=== PATIENT | female | born 1995 | race African-American/Black ===

== ENCOUNTER 2018-03-06 11:56 | Emergency (ER) | payer MEDICAID ==
--- NOTE | 2018-03-06 12:34 | ED Physician Chart ---
ED Chief Complaint/HPI - Patient Information Date Seen:: 03/06/18 Time Seen:: 12:15 Chief Complaint:: pruritic rash History of Present Illness:: Patient has had a pruritic rash for the last approximately 10 days. The rash is primarily on her face and extremities. Patient has been applying calamine lotion and hydrocortisone. [place] Allergies:: Allergies Allergy/AdvReac Type Severity Reaction Status Date / Time No Known Allergies Allergy Verified 03/06/18 12:06 Vitals:: Vital Signs - 8 hr 03/06/18 03/06/18 12:00 12:12 Temp 98.7 F 98 F HR 72 72 RR 16 16 BP 103/64 103/64 O2 Sat % 98 98 Historian:: Patient Review:: Nurse's Note Reviewed ED Review of Systems - Review of Systems General/Constitutional: No fever, No chills, No weight loss, No weakness, No diaphoresis, No edema, No loss of appetite Skin: Rash, No bruising Head: No headache, No light-headedness Eyes: No loss of vision, No pain, No diplopia ENT: No earache, No nasal drainage, No sore throat, No tinnitus Neck: No neck pain, No swelling, No thyromegaly, No stiffness, No mass noted Cardio Vascular: No chest pain, No palpitations, No PND, No orthopnea, No edema Pulmonary: No SOB, No cough, No sputum, No wheezing GI: No nausea, No vomiting, No diarrhea, No pain, No melena, No hematochezia, No constipation, No hematemesis G/U: No dysuria, No frequency, No hematuria Musculoskeletal: No bone or joint pain, No back pain, No muscle pain Endocrine: No polyuria, No polydipsia Psychiatric: No prior psych history, No depression, No anxiety, No suicidal ideation Hematopoietic: No bruising, No lymphadenopathy Allergic/Immuno: No urticaria, No angioedema Neurological: No syncope, No focal symptoms, No weakness, No paresthesia, No headache, No seizure, No dizziness, No confusion, No vertigo ED Past Medical History - Past Medical History Past Medical History: No significant medical hx Family History: Diabetes Melitus, Cancer Social History: Non Smoker, No Alcohol Surgical History: None Psychiatricy History: None Medication: Reviewed Family Medical History - Family Member Mother History Unknown: Yes Ethnicity: Living Status: Unknown ED Physical Exam - Physical Examination General/Constitutional: Awake, Well-developed, well-nourished, Alert, No distress, GCS 15, Non-toxic appearing, Ambulatory Head: Atraumatic Eyes: Lids, conjuctiva normal, PERRL, EOMI Skin: Well hydrated, No lymphadenopathy Other Skin comments:: On the lower extremities are several linear areas up to about 2 cm long of vesicles about a half a millimeter diameter and surrounding by erythema; 8 cm area of erythema and minimal surface crusting right lateral thigh. ENMT: External ears, nose nl, Nasal exam nl, Lips, teeth, gums nl Neck: Nontender, Full ROM w/o pain, No JVD, No nuchal rigidity, No bruit, No mass, No stridor Respiratory: Nl effort/Exclusion, Clear to Auscultation, No Wheeze/Rhonchi/Rales Cardio Vascular: RRR, No murmur, gallop, rubs, NL S1 S2 GI: No tenderness/rebounding/guarding, No organomegaly, No hernia, Normal BS's, Nondistended, No mass/bruits, No McBurney tenderness : No CVA tenderness Extremities: No tenderness or effusion, Full ROM, normal strength in all extremities, No edema, Normal digits & nails Neuro/Psych: Alert/oriented, DTR's symmetric, Normal sensory exam, Normal motor strength, Judgement/insight normal, Mood normal, Normal gait, No focal deficits Misc: Normal back, No paraspinal tenderness ED Assessment - Assessment General Assessment: Patient appears to have contact dermatitis from poison [place]; the area of redness on the right lateral thigh does not look like cellulitis but looks rather the most extensive area of poison [place] exposure with superimposed scratching ED Septic Shock - . Is Septic Shock (SBP<90, OR Lactate>4 mmol\L) present?: No - <6hrs of presentation: Vital Signs: Vital Signs - 8 hr 03/06/18 03/06/18 12:00 12:12 Temp 98.7 F 98 F HR 72 72 RR 16 16 BP 103/64 103/64 O2 Sat % 98 98 ED Reassessment (Disposition) - Reassessment Reassessment Condition:: Unchanged - Diagnosis Diagnosis:: contact dermatitis from poison [place]. - Aftercare/Follow up Instructions Medication Prescribed:: Prednisone 60 mg on day 1 and then decrease by 5 mg a day until all finished and Atarax 25 mg #20 to take 1 4 times a day - Patient Disposition Discharge/Transfer:: Home Condition at Disposition:: Stable, Unchanged ED Discharge Plan - Patient Disposition Instructions: Contact Dermatitis, [id number] Additional Instructions: As tolerated.
== END 2018-03-06 12:43 | disposition home or self-care (01) ==
LOC: ER 11:56
DX: L23.7 Allergic contact dermatitis due to plants, except food (principal)
CPT/HCPCS: 99283; 96372; J2930; Z7502